=== PATIENT | male | born 1970 | race Caucasian/White ===

== ENCOUNTER → 2018-05-01 12:33 | Outpatient (CLI) | payer MEDICAID ==
--- NOTE | ~2018-05-01 | ST ---
PATIENT:VANNESA BRITT MEDICAL RECORD: [id number] SEX: M LOCATION:[facility] ORDER #: ADMISSION DATE: 05/01/18 AGE OF PATIENT: 47 REFERRING PHYSICIAN: INTERPRETING PHYSICIAN: MARIELOS TRAVIS MD DATE OF SERVICE: 05/01/2018 PROCEDURE: Nuclear Stress Test. INDICATION: Angina, abnormal ECG, hypertension, shortness of breath. The patient was exercised on standard Lexiscan protocol with 31 mCi of sestamibi injected at peak stress, 11 mCi were used previously for rest images. FINDINGS: Gated SPECT reveals preserved ejection fraction at 69% with good wall motion and thickening and brightening throughout all segments. SPECT imaging Cardiolite was used as myocardial fusion agent. There is homogeneous uptake throughout all segments at rest and stress with no evidence of inducible ischemia or previous infarction. OVERALL IMPRESSION: 1. This is a normal nuclear stress test with no evidence of inducible ischemia or previous infarction. 2. Gated SPECT reveals a preserved ejection fraction at 69%. In this patient with ongoing symptomatology, the current scan does not suggest the presence of hemodynamically significant coronary artery disease. Evaluate noncardiac etiology of chest pain. TRANSINT:[id number] Voice Confirmation ID: [id number] DOCUMENT ID: [id number] MARIELOS TRAVIS MD CC: [id number] DICTATION DATE: 05/04/18 1239 SPOT SPRAYER: 05/05/18 0047 DEP CLI 05/01/18 [id number] [place] [address]
== END | disposition home or self-care (01) ==
LOC: D.HCCARDIO 12:30
PROVIDERS: ATTEND Internal Medicine Interventional Cardiology
DX: I20.9 Angina pectoris, unspecified (principal)

== ENCOUNTER → 2018-05-07 13:17 | Outpatient (CLI) | payer MEDICAID ==
--- NOTE | 2018-05-10 13:10 | EC ---
PATIENT:VANNESA BRITT DATE OF SERVICE: 05/07/18 SEX: M MEDICAL RECORD: [id number] DATE OF : 68 [facility] AGE OF PATIENT: 47 ADMISSION DATE: 05/07/18 REFERRING PHYSICIAN: INTERPRETING PHYSICIAN: WALI FAULKNER MD ECHOCARDIOGRAM REPORT ECHO CHARGES 4 ECHO COMPLETE Date: 05/07/18 CLINICAL DIAGNOSIS: HEART MURMUR ECHOCARDIOGRAPHIC MEASUREMENTS (adult normal given) AC root (d.<3.7cm) 3.4 cm LV Septum d (<1.2 cm> 1.1 cm Valve Excursion 1.7 cm LV Septum (systole) 1.3 cm Left Atria (s.<4.0cm> 3.4 cm LVPW d(<1.2cm) 1.2 cm RV (d.<2.3cm) 3.4 cm LVPW (sytole) 1.6 cm LV diastole(<5.6CM) 5.8 cm MV E-F(>70mm/sec) cm LV systole 4.0 cm LVOT Diameter 1.8 cm MV exc.(>10mm) 1.6 cm Est.ejection fraction (50-75%) % DOPPLER: LVIT cm/sec A 63.0 cm/sec E 111 cm/sec LA cm/sec RVSP 35 mmHg LVOT 131 cm/sec AOP1/2T m/s Asc. Ao 181 cm/sec RVOT 65 cm/sec RA cm/sec PA 114 cm/sec AV Gradient Peak 13.03mmHg AV Mean 6.66 mmHg AV Area 1.69 cm MV Gradient Peak 9.42 mmHg MV Mean 2.89 mmHg MV Area cm COMMENTS: Leaf Fat Scraper: 2 GISELE SEVERINO Steel Pourer: 3 Dr. Benitez TAPE# PACS Pericardial Effusion N DATE OF SERVICE: 05/07/2018 Adequate 2-D echo, color flow and spectral Doppler, and M-Mode. LVH is present. LV internal dimension is normal. Wall motion is normal. EF is 55%. Aortic valve is tricuspid. No evidence of stenosis by Doppler interrogation. Left atrium is normal. Mitral valve shows no prolapse. Trace MR. Right-sided chambers are normal. Trace TR. TRANSINT:[id number] Voice Confirmation ID: [id number] DOCUMENT ID: [id number] ECHOCARDIOGRAM REPORT [id number] VANNESA BRITT GREGORY A MD at 1310 CC: [id number] DICTATION DATE: 05/08/18 1253 IT SOFTWARE DEVELOPER: 05/08/18 1326 DEP CLI 05/07/18 [facility] [address] [place] [address]
== END | disposition home or self-care (01) ==
LOC: D.HCCARDIO 13:17
PROVIDERS: ATTEND Internal Medicine Interventional Cardiology
DX: R01.1 Cardiac murmur, unspecified (principal)